=== PATIENT | male | born 1960 | race Caucasian/White ===

== ENCOUNTER 2021-08-28 01:03 | Day surgery (SDC) | payer BC, SELFPAY ==
[2021-08-13 13:48] VITALS: BMI 36.6
[2021-08-28 08:28] VITALS: BP 137/69; PULSE 69; RESP 16; TEMP 36.5; O2SAT 99; BMI 36.8
[2021-08-28] MEDS: LACTATED RINGERS 1,000 ML 150 ML IV CONT (08:45)
[2021-08-28 08:48] LABS: Glucose Point of Care 115 mg/dl (65-105)
--- NOTE | 2021-08-28 09:06 | WPDANESEPPF ---
Anes - Initial Pre Proc Eval Procedure: Operation Date: 08/28/21 09:00 Proposed Procedures p Colonoscopy - Cam Mathews DO Date/Time: 08/28/21 09:06 Surgeon: Cam Mathews DO Pre Op Diagnosis: previous polyps, hemorrhoids Patient Data Age: 61 Gender: M Height: 1.91 m Weight: 133.9 kg Last Vital Signs Temp 36.5 C 08/28/21 08:28 Pulse 69 08/28/21 08:28 Resp 16 08/28/21 08:28 BP 137/69 08/28/21 08:28 Pulse Ox 99 08/28/21 08:28 Allergies Allergy/AdvReac Type Severity Reaction Status Date / Time No Known Allergies Allergy Verified 08/28/21 08:27 Home Medications Medication Instructions Recorded Confirmed Type metformin 500 mg tablet 500 mg PO DAILY tablet 11/10/19 08/13/21 History pravastatin 40 mg tablet 40 mg PO DAILY 11/10/19 08/13/21 History fenofibrate 160 mg PO DAILY 08/13/21 08/13/21 History insulin aspart U-100 See Rx Instructions .ROUTE .COMPLEX 08/13/21 08/13/21 History insulin glargine [Lantus Solostar 50 unit SUBCUT HS 08/13/21 08/13/21 History U-100 Insulin] losartan 100 mg PO DAILY 08/13/21 08/13/21 History triamterene-hydrochlorothiazid 1 tablet PO DAILY 08/13/21 08/13/21 History Laboratory Tests 08/28/21 08:40 POC Capillary Glucose 115 mg/dl H mg/dl (65-105) Patient hx anesthesia problems: none Family hx anesthesia problems: none Results Review: All pre-operative results and documents have been reviewed as part of the pre-operative evaluation. [facility] Past Medical History Medical History (Updated 11/13/19 @ 15:31 by Isac Olguin DO) Chest pain at rest Chronic systolic (congestive) heart failure Diabetes 1.5, managed as type 2 HERRERA (dyspnea on exertion) Dyslipidemia Edema of both legs Essential hypertension Hypersomnia CORNELIUS on CPAP Primary osteoarthritis of both knees Surgical History Surgical History (Updated 11/10/19 @ 11:38 by Mahnaz Freeman CMA) History of knee surgery History of shoulder surgery Family History Family History (Updated 02/02/17 @ 10:43 by DOCTOR UNKNOWN) Father Diabetes mellitus Family history of cardiovascular disease Mother Hypertension Family history of cardiovascular disease Diabetes mellitus Family history of arthritis Family history of malignant neoplasm Social History Social History Smoking status: Never smoker Alcohol intake: never Substance use: never Substance use type: does not use Living arrangements: with family Spiritual care concerns: No Anes - Eval Final PreProcedure Day of Procedure 08/28/21 09:06 Patient weight: obese Heart: regular rate and rhythm Lungs: clear to auscultation and normal air movement Airway: Mallampati scale class II Neurological: alert and oriented Last oral intake: >/= 8 hours ASA classification: IV Emergent: no Anesthetic plan: proceed Anesthesia type and monitoring: general GIVS Results Review: All pre-operative results and documents have been reviewed as part of the pre-operative evaluation. Informed Consent: The patient's anesthetic plan and its attendant risks and benefits were discussed with the patient/family/POA. Questions were solicited and answers provided to the satisfaction of the patient/family/POA.
--- NOTE | 2021-08-28 09:26 | PM.IMHP ---
H&P: HPI History of Present Illness Date/Time: 08/28/21 09:26 Chief Complaint: history of colon polyps Narrative: this is a 61-year-old man who presents for colonoscopy. His last colonoscopy was 6 years ago and several polyps were removed. He denies any hematochezia or melena. He has a family history of colon cancer in his grandmother but no first-degree relatives. Review of Systems Review of Systems: All systems reviewed & are unremarkable except as noted in HPI and below Constitutional: Constitutional: Denies chills, Denies fever(s), Denies headache(s) and Denies weight loss Eyes: Eyes: Denies change in vision ENT: Denies dizziness, Denies headache(s), Denies neck mass and Denies throat swelling Cardiovascular: Cardiovascular: Denies chest pain, Denies lightheadedness and Denies dyspnea Respiratory: Respiratory: Denies cough, Denies dyspnea and Denies wheezing Gastrointestinal: Gastrointestinal: Denies abdominal pain, Denies change in bowel habits, Denies nausea and Denies vomiting Genitourinary: Genitourinary: Denies hematuria and Denies dysuria Musculoskeletal: Musculoskeletal: Reports as per HPI Integumentary/Breasts: Skin/Breast: Reports as per HPI Neurologic: Denies dizziness and Denies headache(s) Allergic/Immunologic: Allergic/Immunologic: Denies throat swelling and Denies wheezing [facility] Past Medical History Medical History (Updated 08/28/21 @ 09:26 by Cam Mathews DO) Chest pain at rest Chronic systolic (congestive) heart failure Diabetes 1.5, managed as type 2 HERRERA (dyspnea on exertion) Dyslipidemia Edema of both legs Essential hypertension Hypersomnia CORNELIUS on CPAP Primary osteoarthritis of both knees Surgical History Surgical History (Updated 11/10/19 @ 11:38 by Mahnaz Freeman CMA) History of knee surgery History of shoulder surgery Family History Family History (Updated 02/02/17 @ 10:43 by DOCTOR UNKNOWN) Father Diabetes mellitus Family history of cardiovascular disease Mother Hypertension Family history of cardiovascular disease Diabetes mellitus Family history of arthritis Family history of malignant neoplasm Social History Social History Smoking status: Never smoker Alcohol intake: never Substance use: never Substance use type: does not use Living arrangements: with family Spiritual care concerns: No Meds Home Medications and Allergies Home Medications Medication Instructions Recorded Confirmed Type metformin 500 mg tablet 500 mg PO DAILY tablet 11/10/19 08/13/21 History pravastatin 40 mg tablet 40 mg PO DAILY 11/10/19 08/13/21 History fenofibrate 160 mg PO DAILY 08/13/21 08/13/21 History insulin aspart U-100 See Rx Instructions .ROUTE .COMPLEX 08/13/21 08/13/21 History insulin glargine [Lantus Solostar 50 unit SUBCUT HS 08/13/21 08/13/21 History U-100 Insulin] losartan 100 mg PO DAILY 08/13/21 08/13/21 History triamterene-hydrochlorothiazid 1 tablet PO DAILY 08/13/21 08/13/21 History Allergies Allergy/AdvReac Type Severity Reaction Status Date / Time No Known Allergies Allergy Verified 08/28/21 08:27 Vital Signs Vital Signs - 24 hr 08/28/21 08:28 Temperature 36.5 C Pulse Rate 69 Respiratory Rate 16 Blood Pressure 137/69 Pulse Oximetry 99 Exam Const: General: no acute distress and alert Orientation/consciousness: patient oriented x3 HENMT: Head: normocephalic and atraumatic Ears: hearing grossly normal bilaterally General nose exam: Normal nares present Mouth: Yes Normal oral and palatal mucosa present Eyes: Periorbital: periorbital findings normal Sclera: sclerae normal EOM: EOMs intact bilaterally Neck: Neck: normal visual inspection, no lymphadenopathy and trachea midline Chest: Chest palpation & inspection: normal inspection of the chest Resp: Effort & Inspection: normal respiratory effort Auscultation: clear to auscultation bilaterally Cardio: Jugular venous distension: no JVD
[2021-08-28 10:05] VITALS: BP 102/68; PULSE 65; RESP 23; O2SAT 96
[2021-08-28 10:15] VITALS: BP 130/77; PULSE 60; RESP 21; O2SAT 97
[2021-08-28 10:25] VITALS: BP 124/75; PULSE 61; RESP 25; O2SAT 97
[2021-08-28 10:39] LABS: Glucose Point of Care 97 mg/dl (65-105)
== END 2021-08-28 10:43 | disposition home or self-care (01) ==
PROVIDERS: PCP Internal Medicine; Visit Provider Surgery
PROC: 0DJD8ZZ Inspection of Lower Intestinal Tract, Via Natural or Artificial Opening Endoscopic (ICD-10-PCS; CPT 45378; principal; 2021-08-28 09:00)
DX: Z12.11 Encounter for screening for malignant neoplasm of colon (principal); D12.2 Benign neoplasm of ascending colon; D12.3 Benign neoplasm of transverse colon; D12.5 Benign neoplasm of sigmoid colon; E13.9 Other specified diabetes mellitus without complications; I11.0 Hypertensive heart disease with heart failure; I50.22 Chronic systolic (congestive) heart failure; E78.5 Hyperlipidemia, unspecified; G47.33 Obstructive sleep apnea (adult) (pediatric); E66.9 Obesity, unspecified; Z68.36 Body mass index [BMI] 36.0-36.9, adult; Z79.84 Long term (current) use of oral hypoglycemic drugs; Z79.4 Long term (current) use of insulin
CPT/HCPCS: 45385; 82948; 88305; J2704; J7120

== ENCOUNTER 2025-02-05 10:23 | Outpatient (CLI) | payer MEDICARE, SELFPAY ==
--- NOTE | ~2025-02-05 | XR_ITS ---
AP and oblique views of the left ribs and PA an lateral chest radiographs Clinical History: Pain Findings: Probable minimally displaced acute fracture at the anterior margin of the left seventh rib. Lungs are clear, without focal consolidation or pleural effusion. Cardiomediastinal contour is withi n normal limits. Soft tissues are unremarkable. Impression: Probable anterior left seventh rib fracture. Clear lungs. Reviewed, dictated and finalized at location . Impression: Probable anterior left seventh rib fracture. Clear lungs.
--- OUTSIDE RECORDS SUMMARY | 2025-02-05 11:49 | XMS_ITS | Clinical Summary ---
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 Name Role Phone Unavailable Primary Care Provider Unavailabl e Social History Tobacco Use Types Packs/Day Years Used Date Smoking Tobacco: Never Assessed Sex and Gender Information Value Date Recorded Sex Assigned at Not on file Legal Sex Male 8:45 PM CDT Gender Identity Not on file Sexual Orientation Not on file Plan of Treatment Health Maintenance Due Date Last Done Comments Colorectal Cancer Screening Colonoscopy (10 Years) 1960 Annual Physical 02/10/1963 Hepatitis C 02/10/1978 DTaP, Tdap and Td Vaccines ( 1 - Tdap) 02/10/1979 Zoster Vaccines (1 of 2) 02/10/2010 COVID-19 Vaccine ( - 2023-2 5 season) 2024 RSV Immunization or 60+ Years (1 - 1-dose 75+ series) 02/10/2035 Meningococcal B Vaccine Aged Out No l onger eligible based on patient's age to complete this topic Meningococcal Vaccine Aged Out No raul lindsay eligible based on patient's age to complete this topic Pneumococcal Vaccine: Pediat rics (0 to 5 Years) and At-Risk Patients (6 to 49 Years) Aged Out No longer eligible b ased on patient's age to complete this topic RSV Immunizations Under 20 Months Aged Out No longer eligible based on patient's age to complete this topic
== END 2025-02-05 10:24 | disposition home or self-care (01) ==
LOC: CHSIMG 10:30
PROVIDERS: PCP Internal Medicine; Visit Provider Internal Medicine
DX: R07.81 Pleurodynia (principal)
CPT/HCPCS: 71046; 71100

== ENCOUNTER 2025-06-20 09:15 | Outpatient (CLI) | payer MEDICARE, SELFPAY ==
--- NOTE | ~2025-06-20 | XR_ITS ---
XR knee LT 3V 06/20/2025 09:46 Indication: Left knee pain Procedure: 3 views left knee Comparison: 02/16/2019 Findings: There is been progression of severe tricompartment osteoarthritis. There are subtle chondrocalcinosis. No acute fracture, subluxation or dislocation. No joint effusion. Impression: 1: Severe tricompartment osteoarthritis Reviewed, dictated and finalized at location O. Impression: 1: Severe tricompartment osteoarthritis
--- NOTE | ~2025-06-20 | XR_ITS ---
XR knee RT 3V 06/20/2025 09:46 Indication: Right knee pain Procedure: 3 views right knee Comparison: 01/14/2017 Findings: There is severe tricompartment osteoarthritis. There is chondrocalcinosis. No acute fracture or traumatic malalignment. No significant joint effusion. Osteopenia. Impression: 1: Severe tricompartment osteoarthritis of the right knee. Reviewed, dictated and finalized at location O. Impression: 1: Severe tricompartment osteoarthritis of the right knee.
== END 2025-06-20 09:16 | disposition home or self-care (01) ==
LOC: CHSLAB 09:19
PROVIDERS: PCP Internal Medicine; Visit Provider Internal Medicine
DX: M25.562 Pain in left knee (principal); M25.561 Pain in right knee; M17.0 Bilateral primary osteoarthritis of knee
CPT/HCPCS: 73562